=== PATIENT | male | born 2000 | race Caucasian/White ===

== ENCOUNTER 2023-11-23 08:33 | Emergency (ER) | payer OTHER ==
[2023-11-23 08:46] VITALS: BP 129/78; BMI 32.1
[2023-11-23] MEDS ORDERED: KETOROLAC TROMETHAMINE 30 MG/1 ML VIAL ONE (09:26)
[2023-11-23] MEDS ORDERED: METHOCARBAMOL 500 MG TABLET ONE (09:26)
[2023-11-23] MEDS: METHOCARBAMOL 500 MG TABLET PO ONE (09:38)
[2023-11-23] MEDS: KETOROLAC TROMETHAMINE 30 MG/1 ML VIAL IM ONE (09:38)
== END 2023-11-23 14:00 | disposition home or self-care (01) ==
LOC: JERFT 08:33 → JER 08:33
PROC: 3E0233Z Introduction of Anti-inflammatory into Muscle, Percutaneous Approach (ICD-10-PCS; principal; 2023-11-23)
DX: M51.26 Other intervertebral disc displacement, lumbar region (principal); M54.50 Low back pain, unspecified
CPT/HCPCS: 72148-TC; 99284-25

== ENCOUNTER 2023-12-14 05:46 | Emergency (ER) | payer OTHER ==
[2023-12-14 05:49] VITALS: BP 108/65; PULSE 78; RESP 18; TEMP 97.8; BMI 30.7
[2023-12-14] MEDS ORDERED: DEXAMETHASONE SOD PHOSPHATE 10 MG/1 ML VIAL ONE (07:34)
[2023-12-14] MEDS: DEXAMETHASONE SOD PHOSPHATE 10 MG/1 ML VIAL IM ONE (07:40)
== END 2023-12-14 11:52 | disposition home or self-care (01) ==
LOC: JER 05:46
PROC: 3E023GC Introduction of Other Therapeutic Substance into Muscle, Percutaneous Approach (ICD-10-PCS; principal; 2023-12-14)
DX: M54.50 Low back pain, unspecified (principal); K45.8 Other specified abdominal hernia without obstruction or gangrene
CPT/HCPCS: 99284-25; J1100